=== PATIENT | female | born 1970 | race Caucasian/White ===

== ENCOUNTER 2017-06-28 11:25 | Emergency (ER) | payer OTHER ==
[2017-06-28 11:41] VITALS: BP 124/43; PULSE 82; TEMP 98.5; BMI 44.1
[2017-06-28] MEDS ORDERED: CLINDAMYCIN HCL 150 MG CAPSULE (FP) ONE (12:37)
[2017-06-28] MEDS ORDERED: CLINDAMYCIN HCL 150 MG CAPSULE (FP) PO ONE (12:39)
--- NOTE | 2017-06-28 12:39 | PDOC ---
History of Present Illness - General Chief Complaint: Abscess Boil Stated Complaint: ABSCESS ON BACK Time Seen by Provider: 06/28/17 12:09 History Source: Patient Exam Limitations: No Limitations - History of Present Illness Initial Comments: 06/28/17 12:33 Patient states had onset of pain and swelling with a pimple 3 days ago to her right mid back, states squeezed it and got a small amount of pus. Woke up the next day and swelling tenderness was worse, woke up today and it was much larger. expressed more purulent drainage from area but patient states was too painful so came for evaluation. Timing/Duration: reports: just prior to arrival Severity: Yes: mild, moderate Location: reports: torso Associated Symptoms: reports: denies symptoms Past History - Travel Traveled outside of the country in the last 30 days: Yes Close contact w/someone who was outside of country & ill: Yes - Past Medical History Allergies/Adverse Reactions: Allergies Allergy/AdvReac Type Severity Reaction Status Date / Time amoxicillin Allergy Unknown Verified 06/28/17 11:41 Penicillins Allergy Unknown Verified 06/28/17 11:41 Sulfa (Sulfonamide Allergy Unknown Verified 06/28/17 11:41 Antibiotics) [Sulfa(Sulfonamide Antibiotics)] codeine [Codeine] Allergy Difficulty Verified 06/28/17 11:41 Breathing Home Medications: Ambulatory Orders Dexlansoprazole [Dexilant] 60 mg PO DAILY 06/08/15 Glyburide 5 mg PO BID 04/30/16 Metformin HCl [Glucophage -] 500 mg PO BID 04/30/16 Famotidine [Pepcid] 20 mg PO BID #60 tablet 05/01/16 Oxycodone HCl/Acetaminophen [Percocet 5-325 mg Tablet] 1 - 2 tab PO Q6H #30 tab MDD 4 05/01/16 Clindamycin [Cleocin -] 300 mg PO TID #21 capsule 06/28/17 Anemia: No Asthma: No Cancer: No Cardiac Disorders: No CVA: No COPD: No CHF: No Dementia: No Diabetes: Yes (NO MEDS X 1 MO) GI Disorders: No Disorders: No HTN: No Hypercholesterolemia: No Liver Disease: No Seizures: No Thyroid Disease: No - Surgical History Cholecystectomy: Yes (2002) Gastric Stapling: No (SLEEVE) GI Surgery: No - Immunization History Td Vaccination: Yes Immunization Up to Date: (UNSURE) - Suicide/Smoking/Psychosocial Hx Smoking Status: Yes Smoking History: Never smoked Have you smoked in the past 12 months: No Number of Cigarettes Smoked Daily: 0 If you are a former smoker, when did you quit?: 2010 Cigars Per Day: 0 Hx Alcohol Use: No Drug/Substance Use Hx: No Substance Use Type: None Hx Substance Use Treatment: No Review of Systems - Review of Systems Able to Perform ROS?: Yes Is the patient limited Liberian proficient: Yes Constitutional: Yes: Symptoms Reported, See HPI, Malaise HEENTM: Yes: See HPI. No: Eye Pain, Nose Pain Respiratory: Yes: See HPI. No: Symptoms reported Integumentary: Yes: Symptoms Reported, Other All Other Systems: Reviewed and Negative *Physical Exam - Vital Signs Last Vital Signs Temp Pulse Resp BP Pulse Ox 98.5 F 82 20 124/43 97 06/28/17 11:39 06/28/17 11:39 06/28/17 11:39 06/28/17 11:39 06/28/17 11:39 - Physical Exam General Appearance: Yes: Nourished, Appropriately Dressed, Apparent Distress HEENT: positive: AGA, Normal ENT Inspection, TMs Normal, Pharynx Normal Neck: positive: Tender, Supple, Lymphadenopathy (R) Respiratory/Chest: positive: Lungs Clear Gastrointestinal/Abdominal: positive: Tender, Soft Musculoskeletal: positive: Normal Inspection Extremity: positive: Normal Capillary Refill, Normal Inspection Integumentary: positive: Normal Color, Pale, Other (agent with indurated area approximately 5 cm to midpoint right waistline. Has a scabbed lesion. 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 *DC/Admit/Observation/Transfer Diagnosis at time of Disposition: Abscess - Discharge Dispostion Disposition: HOME Condition at time of disposition: Stable Admit: No - Prescriptions Prescriptions: Clindamycin [Cleocin -] 300 mg PO TID #21 capsule - Referrals Referrals: Messi Cornell MD [Primary Care Provider] - - Patient Instructions Printed Discharge Instructions: DI for Incision and Drainage of a Skin Abscess Additional Instructions: Rest, keep area elevated. Avoid strenuous activity or exercise until wound is healed Use hot soaks to area to bring more blood to the surface and encourage drainage Allow water from shower to wash area thoroughly for 2-3 minutes, and pat dry upon exit of shower and replace dressing. Change his dressing daily until the wound is completely healed. May use Tylenol or Motrin for mild pain relief Use stronger medications as directed and prescribed Continue all medications as prescribed Followup with private physician in 2-3 days for wound check Return to emergency Department for worsening swelling, pain, redness, fevers as needed - Post Discharge Activity Forms/Work/School Notes: Back to Work
== END 2017-06-28 12:46 | disposition home or self-care (01) ==
LOC: JERFT 11:25
DX: L02.212 Cutaneous abscess of back [any part, except buttock and flank] (principal); E11.9 Type 2 diabetes mellitus without complications
CPT/HCPCS: 99281-25

== ENCOUNTER 2023-04-05 10:47 | Emergency (ER) | payer OTHER ==
[2023-04-05 10:55] VITALS: BP 113/58; PULSE 83; RESP 20; BMI 41.6
[2023-04-05] MEDS ORDERED: diazePAM 5 MG TABLET PO ONE (11:27)
[2023-04-05] MEDS ORDERED: KETOROLAC TROMETHAMINE 30 MG/1 ML VIAL IM ONE (11:27)
[2023-04-05] MEDS ORDERED: KETOROLAC TROMETHAMINE 30 MG/1 ML VIAL ONE (11:32)
[2023-04-05] MEDS ORDERED: diazePAM 5 MG TABLET ONE (11:32)
[2023-04-05 14:31] VITALS: TEMP 98.7
== END 2023-04-05 14:46 | disposition home or self-care (01) ==
LOC: JER 10:47 → JERFT 10:47
PROC: 3E0233Z Introduction of Anti-inflammatory into Muscle, Percutaneous Approach (ICD-10-PCS; principal; 2023-04-05)
DX: M54.2 Cervicalgia (principal); M54.6 Pain in thoracic spine; M54.50 Low back pain, unspecified; M62.838 Other muscle spasm; M25.512 Pain in left shoulder; V49.50XA Passenger injured in collision with unspecified motor vehicles in traffic accident, initial encounter; Y92.410 Unspecified street and highway as the place of occurrence of the external cause
CPT/HCPCS: 72050-TC-FY; 72070-TC-FY; 72100-TC-FY; 73030-TC-LT-FY; 99284-25

== ENCOUNTER 2023-11-25 15:34 | Emergency (ER) | payer OTHER ==
[2023-11-25 15:45] VITALS: TEMP 98; BMI 38.6
[2023-11-25 17:06] LABS: HEMOGLOBIN 13.4 GM/dL (10.7-15.3); MCH 29.5 pg (25.7-33.7); MCHC 34.3 g/dl (32.0-36.0); MEAN CELL VOLUME 86.1 fl (80-96); MEAN PLT VOLUME 6.8 fl (7.5-11.1); PLATELET COUNT 246 10^3/uL (134-434); RBC 4.53 M/mm3 (3.60-5.2); RDW 13.3 % (11.6-15.6); WHITE BLOOD COUNT 10.4 K/mm3 (4.0-10.0)
[2023-11-25] MEDS ORDERED: ACETAMINOPHEN INJECTION 100 ML IVPB ONE (17:08)
[2023-11-25] MEDS ORDERED: FAMOTIDINE 10 MG/ML VIAL IVPB ONE (17:09)
[2023-11-25] MEDS ORDERED: MAG HYDROX/AL HYDROX/SIMETH 30 ML UNIT-DOSE CUP ONE (17:09)
[2023-11-25] MEDS: SODIUM CHLORIDE 1,000 ML IV STA (17:18)
[2023-11-25] MEDS: MAG HYDROX/AL HYDROX/SIMETH 30 ML UNIT-DOSE CUP PO ONE (17:18)
[2023-11-25] MEDS: ONDANSETRON 4 MG/2 ML VIAL IVPUSH ONE ×2 (17:19→21:22)
[2023-11-25] MEDS: ACETAMINOPHEN 1000 MG/100 ML BAG IVPB ONE (17:19)
[2023-11-25] MEDS: FAMOTIDINE 20 MG/50 ML IVPB 20 MG/50 ML MG IVPB ONE (17:19)
[2023-11-25] MEDS ORDERED: ONDANSETRON 4 MG/2 ML VIAL ONE ×2 (17:20→21:19)
[2023-11-25 17:23] LABS: POTASSIUM 4.1 mmol/L (3.5-5.1)
[2023-11-25 17:24] LABS: CALCIUM 9.4 mg/dL (8.5-10.1)
[2023-11-25 17:25] LABS: ALBUMIN 3.5 g/dl (3.4-5.0); BLOOD UREA NITROGEN 13.6 mg/dL (7-18)
[2023-11-25 17:28] LABS: CREATININE 0.7 mg/dL (0.55-1.3)
[2023-11-25 17:30] LABS: BILIRUBIN,TOTAL 0.7 mg/dL (0.2-1); TOT PROT 7.5 g/dl (6.4-8.2)
[2023-11-25 18:19] LABS: OVALOCYTE 1+
[2023-11-25 18:23] LABS: PLATELET ESTIMATE ADEQUATE
[2023-11-25 19:36] VITALS: BP 122/70; PULSE 78; RESP 20
== END 2023-11-25 21:41 | disposition home or self-care (01) ==
LOC: JER 15:34
PROC: 3E033GC Introduction of Other Therapeutic Substance into Peripheral Vein, Percutaneous Approach (ICD-10-PCS; principal; 2023-11-25)
PROC: 3E033GC Introduction of Other Therapeutic Substance into Peripheral Vein, Percutaneous Approach (ICD-10-PCS; 2023-11-25)
PROC: 3E033GC Introduction of Other Therapeutic Substance into Peripheral Vein, Percutaneous Approach (ICD-10-PCS; 2023-11-25)
PROC: 3E033NZ Introduction of Analgesics, Hypnotics, Sedatives into Peripheral Vein, Percutaneous Approach (ICD-10-PCS; 2023-11-25)
DX: R11.2 Nausea with vomiting, unspecified (principal); R10.84 Generalized abdominal pain; R07.89 Other chest pain; R06.02 Shortness of breath
CPT/HCPCS: 36415; 71045-TC-FY; 74177-TC; 80053; 84484; 85025; 93005; 93010; 99285-25; J0131; Q9967

== ENCOUNTER 2023-12-27 08:46 | Day surgery (SDC) | payer OTHER ==
[2023-12-27] MEDS ORDERED: METOCLOPRAMIDE HCL INJECTION 10 MG/2 ML VIAL ONE (09:44)
[2023-12-27] MEDS ORDERED: ACETAMINOPHEN INJECTION 100 ML IVPB ONE (09:44)
[2023-12-27] MEDS ORDERED: FAMOTIDINE 20 MG/50 ML IVPB 20 MG/50 ML MG IVPB ONE (09:44)
[2023-12-27] MEDS: METOCLOPRAMIDE HCL INJECTION 10 MG/2 ML VIAL IVPUSH ONE (10:10)
[2023-12-27] MEDS: SODIUM CHLORIDE 0.9% 500 ML INFUS.BAG IV ONE (10:10)
[2023-12-27] MEDS: FAMOTIDINE 20 MG/50 ML IVPB 20 MG/50 ML MG IVPB ONE (10:10)
[2023-12-27] MEDS: ACETAMINOPHEN 1000 MG/100 ML BAG IVPB ONE (10:10)
[2023-12-27 10:29] LABS: HEMATOCRIT 37.9 % (32.4-45.2); MCH 29.5 pg (25.7-33.7); MCHC 34.3 g/dl (32.0-36.0); MEAN CELL VOLUME 86.1 fl (80-96); MEAN PLT VOLUME 7.4 fl (7.5-11.1); PLATELET COUNT 217 10^3/uL (134-434); RDW 13.6 % (11.6-15.6); WHITE BLOOD COUNT 8.2 K/mm3 (4.0-10.0)
[2023-12-27 10:48] LABS: POTASSIUM 3.8 mmol/L (3.5-5.1)
[2023-12-27 10:50] LABS: CALCIUM 9.4 mg/dL (8.5-10.1)
[2023-12-27 10:51] LABS: ALBUMIN 3.7 g/dl (3.4-5.0); BLOOD UREA NITROGEN 15.3 mg/dL (7-18); MAGNESIUM 1.9 mg/dL (1.8-2.4)
[2023-12-27 10:54] LABS: ANISOCYTOSIS 1+; CREATININE 0.7 mg/dL (0.55-1.3); MACROCYTOSIS 0
[2023-12-27 10:55] LABS: TOT PROT 7.4 g/dl (6.4-8.2)
[2023-12-27 10:56] LABS: BILIRUBIN,TOTAL 0.7 mg/dL (0.2-1)
[2023-12-27] MEDS ORDERED: ONDANSETRON 4 MG/2 ML VIAL ONE ×2 (11:22→15:07)
[2023-12-27] MEDS ORDERED: MORPHINE SULFATE 2 MG/ML SYRINGE ONE ×2 (11:22→15:07)
[2023-12-27] MEDS: ONDANSETRON 4 MG/2 ML VIAL IVPB ONE (11:36)
[2023-12-27] MEDS: morphine CARPU-JECT 2 MG/1 ML DISP.SYRIN IVPUSH ONE ×2 (11:36→15:17)
[2023-12-27 11:46] LABS: PH,URINE 8.5 (5.0-8.0); URINE APPEARANCE CLOUDY; URINE BILIRUBIN NEGATIVE (NEGATIVE); URINE COLOR YELLOW; URINE GLUCOSE (UA) NEGATIVE (NEGATIVE); URINE KETONE 1+ (NEGATIVE); URINE LEUK ESTERASE NEGATIVE (NEGATIVE); URINE NITRITE NEGATIVE (NEGATIVE); URINE PROTEIN TRACE (NEGATIVE); URINE UROBILINOGEN 0.2 mg/dL (0.2-1.0)
[2023-12-27] MEDS ORDERED: SUCRALFATE 1 GM TABLET (FP) ONE (15:07)
[2023-12-27] MEDS: ONDANSETRON 4 MG/2 ML VIAL IVPUSH ONE ×2 (15:16→16:57)
[2023-12-27] MEDS: SUCRALFATE 1 GM TABLET (FP) PO ONE (15:17)
[2023-12-27 20:25] VITALS: BMI 37.5
[2023-12-27] MEDS: ACETAMINOPHEN 1000 MG/100 ML BAG IVPB PRN (23:26)
[2023-12-28 07:15] LABS: BASO % 0.6 % (0-2.0); HEMATOCRIT 36.5 % (32.4-45.2); HEMOGLOBIN 12.3 GM/dL (10.7-15.3); LYMPH % 26.2 % (8-40); MCH 29.2 pg (25.7-33.7); MCHC 33.6 g/dl (32.0-36.0); MEAN CELL VOLUME 87.1 fl (80-96); MEAN PLT VOLUME 7.3 fl (7.5-11.1); MONO % 7.5 % (3.8-10.2); NEUT % 64.7 % (42.8-82.8); PLATELET COUNT 211 10^3/uL (134-434); RDW 13.5 % (11.6-15.6); WHITE BLOOD COUNT 7.1 K/mm3 (4.0-10.0)
[2023-12-28 07:36] LABS: POTASSIUM 3.5 mmol/L (3.5-5.1)
[2023-12-28 07:38] LABS: BLOOD UREA NITROGEN 10.7 mg/dL (7-18); CALCIUM 8.7 mg/dL (8.5-10.1)
[2023-12-28 07:39] LABS: ALBUMIN 3.2 g/dl (3.4-5.0); MAGNESIUM 1.9 mg/dL (1.8-2.4)
[2023-12-28 07:42] LABS: CREATININE 0.6 mg/dL (0.55-1.3); PHOSPHOROUS 3.1 mg/dL (2.5-4.9)
[2023-12-28 07:43] LABS: BILIRUBIN,TOTAL 0.8 mg/dL (0.2-1); TOT PROT 6.6 g/dl (6.4-8.2)
[2023-12-28] MEDS: ONDANSETRON 4 MG/2 ML VIAL IVPUSH PRN (15:50)
[2023-12-29] MEDS ORDERED: BUPIVACAINE HCL/PF 0.25% (2.5MG/ML) 10 ML VIAL ONE (09:26)
[2023-12-29] MEDS ORDERED: HEPARIN NA (PORCINE) 5,000 UNITS/ML 1ML VIAL ONE (09:26)
[2023-12-29] MEDS ORDERED: ROCURONIUM BROMIDE 50 MG/5 ML SYRINGE ONE ×2 (10:09→16:04)
[2023-12-29] MEDS ORDERED: PROPOFOL 20 ML ONE (10:09)
[2023-12-29] MEDS ORDERED: MIDAZOLAM HCL 2 MG/2 ML SINGLE DOSE VIAL ONE (10:10)
[2023-12-29] MEDS: ceFAZolin SODIUM 1 GM VIAL IVPB ONE ×2 (10:20→16:08)
[2023-12-29] MEDS ORDERED: HYDROmorphone HCl 2 MG/ML VIAL ONE (10:28)
[2023-12-29] MEDS: BUPIVACAINE HCL/PF 0.25% (2.5MG/ML) 10 ML VIAL IJ ONE ×2 (10:54)
[2023-12-29] MEDS ORDERED: SEVOFLURANE 250 ML BTL ONE (11:43)
[2023-12-29] MEDS ORDERED: NEOSTIGMINE METHYLSULFATE 0.5 MG/1 ML - 10 ML MDV ONE (14:05)
[2023-12-29] MEDS ORDERED: ceFAZolin SODIUM 1 GM VIAL ONE (16:08)
[2023-12-29] MEDS ORDERED: ONDANSETRON 4 MG/2 ML VIAL ONE (16:30)
[2023-12-29] MEDS ORDERED: SUGAMMADEX SODIUM 200 MG/2 ML VIAL ONE (16:30)
[2023-12-29] MEDS ORDERED: METOCLOPRAMIDE HCL INJECTION 10 MG/2 ML VIAL ONE (16:40)
[2023-12-29] MEDS: LACTATED RINGERS SOLUTION 1,000 ML IV SCH (16:57)
[2023-12-29] MEDS ORDERED: oxyCODONE HCL 5 MG TABLET PO PRN ×2 (17:06)
[2023-12-29] MEDS ORDERED: ONDANSETRON 4 MG/2 ML VIAL IVPUSH PRN ×2 (17:06→17:43)
[2023-12-29] MEDS ORDERED: morphine SULFATE 4 MG/ML VIAL IVPUSH PRN (17:43)
[2023-12-29 18:14] LABS: HEMATOCRIT 39.2 % (32.4-45.2); HEMOGLOBIN 13.2 GM/dL (10.7-15.3); MCH 29.3 pg (25.7-33.7); MCHC 33.6 g/dl (32.0-36.0); MEAN PLT VOLUME 7.3 fl (7.5-11.1); PLATELET COUNT 222 10^3/uL (134-434); RBC 4.51 M/mm3 (3.60-5.2); RDW 13.1 % (11.6-15.6); WHITE BLOOD COUNT 24.7 K/mm3 (4.0-10.0)
[2023-12-29 18:55] VITALS: RESP 18
[2023-12-29 21:45] LABS: HEMATOCRIT 36.1 % (32.4-45.2); HEMOGLOBIN 12.3 GM/dL (10.7-15.3); MCH 29.2 pg (25.7-33.7); MCHC 34.1 g/dl (32.0-36.0); MEAN CELL VOLUME 85.6 fl (80-96); MEAN PLT VOLUME 7.2 fl (7.5-11.1); PLATELET COUNT 225 10^3/uL (134-434); RBC 4.22 M/mm3 (3.60-5.2); RDW 13.5 % (11.6-15.6); WHITE BLOOD COUNT 23.6 K/mm3 (4.0-10.0)
[2023-12-30] MEDS: ACETAMINOPHEN 1000 MG/100 ML BAG IVPB PRN (02:57)
[2023-12-30] MEDS ORDERED: METOCLOPRAMIDE HCL INJECTION 10 MG/2 ML VIAL IVPB PRN (08:45)
[2023-12-30 09:36] LABS: BASO % 0.1 % (0-2.0); EOS % 0.1 % (0-4.5); HEMOGLOBIN 12.1 GM/dL (10.7-15.3); LYMPH % 6.8 % (8-40); MCHC 35.6 g/dl (32.0-36.0); MEAN CELL VOLUME 84.5 fl (80-96); MEAN PLT VOLUME 7.5 fl (7.5-11.1); MONO % 8.2 % (3.8-10.2); NEUT % 84.8 % (42.8-82.8); PLATELET COUNT 232 10^3/uL (134-434); RBC 4.02 M/mm3 (3.60-5.2); RDW 13.6 % (11.6-15.6); WHITE BLOOD COUNT 16.4 K/mm3 (4.0-10.0)
[2023-12-30] MEDS ORDERED: PANTOPRAZOLE SODIUM 40 MG VIAL IVPUSH SCH (10:00)
[2023-12-30] MEDS: PANTOPRAZOLE SODIUM 40 MG VIAL IVPUSH SCH (10:05)
[2023-12-30] MEDS: POLYETHYLENE GLYCOL (HEALTHYLAX) 3350 17 GM PACKET PO SCH (13:00)
[2023-12-30] MEDS: ACETAMINOPHEN 650 MG/20.3 ML ORAL SOLUTION (CUPS) PO SCH (13:00)
[2023-12-30] MEDS: IBUPROFEN 600 MG TABLET (FP) PO SCH (13:01)
[2023-12-30] MEDS: METOCLOPRAMIDE HCL INJECTION 10 MG/2 ML VIAL IVPUSH SCH (13:42)
[2023-12-31 08:45] LABS: BASO % 0.6 % (0-2.0); EOS % 2.9 % (0-4.5); HEMATOCRIT 34.3 % (32.4-45.2); HEMOGLOBIN 11.7 GM/dL (10.7-15.3); LYMPH % 17.2 % (8-40); MCH 29.4 pg (25.7-33.7); MCHC 34.3 g/dl (32.0-36.0); MEAN CELL VOLUME 85.8 fl (80-96); MEAN PLT VOLUME 7.5 fl (7.5-11.1); MONO % 8.4 % (3.8-10.2); NEUT % 70.9 % (42.8-82.8); PLATELET COUNT 244 10^3/uL (134-434); RBC 3.99 M/mm3 (3.60-5.2); RDW 13.5 % (11.6-15.6)
[2023-12-31 16:05] VITALS: BP 133/67; PULSE 97; TEMP 98.2
== END 2023-12-31 17:17 | disposition home or self-care (01) ==
LOC: JER 08:46 → UNDOADMIN 15:29 → JERBED 15:29 → J6S 19:50 → JERBED 19:50 → JASUSAT 12-29 10:11 → J6S 12-29 10:25 → JASUSAT 12-31 17:17
PROVIDERS: ATTEND Internal Medicine
PROC: 8E0W4CZ Robotic Assisted Procedure of Trunk Region, Percutaneous Endoscopic Approach (ICD-10-PCS; 2023-12-29)
PROC: 0WUF4JZ Supplement Abdominal Wall with Synthetic Substitute, Percutaneous Endoscopic Approach (ICD-10-PCS; principal; 2023-12-29 12:00)
DX: K42.9 Umbilical hernia without obstruction or gangrene (principal)
CPT/HCPCS: 49593; S2900; 36415; 74177-TC; 80053; 81003; 82962; 83605; 83690; 83735; 84100; 85025; 85027; 86850; 86900; 86901; 87086; 93005; 93010; 94010; 94760; 99285-25; C1781; J0131; J1644; Q9967

== ENCOUNTER 2025-03-04 07:33 | Emergency (ER) | payer OTHER, BC ==
[2025-03-04 07:43] VITALS: BP 130/72; PULSE 72; RESP 20; TEMP 98.1; BMI 37.2
[2025-03-04] MEDS ORDERED: ONDANSETRON 4 MG/2 ML VIAL ONE (08:47)
[2025-03-04] MEDS ORDERED: FAMOTIDINE 20 MG/50 ML IVPB 20 MG/50 ML MG IVPB ONE (08:47)
[2025-03-04] MEDS ORDERED: ACETAMINOPHEN INJECTION 100 ML ONE (08:47)
[2025-03-04] MEDS: SODIUM CHLORIDE 0.9% 500 ML INFUS.BAG IV ONE (09:05)
[2025-03-04] MEDS: ONDANSETRON 4 MG/2 ML VIAL IVPUSH ONE (09:05)
[2025-03-04] MEDS: ACETAMINOPHEN 1000 MG/100 ML BAG IVPB ONE (09:05)
[2025-03-04] MEDS: FAMOTIDINE 20 MG/50 ML IVPB 20 MG/50 ML MG IVPB ONE (09:05)
[2025-03-04 09:45] LABS: ABSOLUTE IMMATURE GRANULOCYTES 0.04 x10^3/uL (0.0-0.031); BASOPHILS # 0.03 x10^3/uL (0.01-0.08); EOSINOPHIL % 0.0 % (0.7-5.8); EOSINOPHILS # 0.00 x10^3/uL (0.04-0.36); MCHC 33.1 g/dl (32.2-35.5); MEAN CELL VOLUME 88.0 fl (79.4-94.8); MEAN PLT VOLUME 9.7 fl (9.4-12.3); MONOCYTE # 0.55 x10^3/uL (0.24-0.86); MONOCYTE % 4.9 % (4.7-12.5); RDW 12.6 % (12.3-16.6)
[2025-03-04 09:56] LABS: EPI CELLS 25 /uL (0-25.1); HYALINE CASTS 1 /uL (0-3.1); URINE APPEARANCE CLEAR; URINE BACTERIA 895 /uL (0-1359); URINE BILIRUBIN NEGATIVE (NEGATIVE); URINE COLOR YELLOW; URINE GLUCOSE (UA) NEGATIVE (NEGATIVE); URINE KETONE 2+ (NEGATIVE); URINE LEUK ESTERASE NEGATIVE (NEGATIVE); URINE NITRITE NEGATIVE (NEGATIVE); URINE PROTEIN TRACE (NEGATIVE); URINE RBC 10 /uL (0-23.9); URINE UROBILINOGEN 0.2 mg/dL (0.2-1.0); URINE WBC 21 /uL (0-25.8)
[2025-03-04 09:59] LABS: GLUCOSE,RANDOM 114.0 mg/dL (74-106); TOT PROT 8.1 g/dl (6.4-8.2)
[2025-03-04 10:00] LABS: CO2 20.0 mmol/L (21-32)
[2025-03-04 10:01] LABS: ALK PHOS 177.0 U/L (40-150)
[2025-03-04 10:04] LABS: SGOT/AST 50.0 U/L (5-34); SGPT/ALT 40.0 U/L (0-55)
[2025-03-04 10:05] LABS: CREATININE 0.65 mg/dL (0.55-1.3)
[2025-03-04 10:25] LABS: HCV DIAGNOSTIC IN-HOUSE W/RFLX NON-REACTIVE (NONREACTIVE); HIV INTERPRETATION NEGATIVE (NEGATIVE)
[2025-03-04 10:31] LABS: ERYTHROCYTE SEDIMENTATION RATE 26 mm/hr (0-30)
== END 2025-03-04 13:28 | disposition home or self-care (01) ==
LOC: JER 07:33
PROC: 3E033GC Introduction of Other Therapeutic Substance into Peripheral Vein, Percutaneous Approach (ICD-10-PCS; principal; 2025-03-04)
PROC: 3E033NZ Introduction of Analgesics, Hypnotics, Sedatives into Peripheral Vein, Percutaneous Approach (ICD-10-PCS; 2025-03-04)
PROC: 3E033GC Introduction of Other Therapeutic Substance into Peripheral Vein, Percutaneous Approach (ICD-10-PCS; 2025-03-04)
DX: R11.2 Nausea with vomiting, unspecified (principal); R10.31 Right lower quadrant pain; R10.33 Periumbilical pain; R51.9 Headache, unspecified; R19.7 Diarrhea, unspecified; R53.81 Other malaise
CPT/HCPCS: 36415; 74177-TC; 80053; 81003; 83690; 85025; 85651; 86803; 87086; 87389; 87637-QW; 99285-25